=== PATIENT | female | born 1970 | race Caucasian/White ===

== ENCOUNTER 2017-11-18 10:51 | Emergency (ER) | payer OTHER ==
[~2017-11-18] VITALS: Ht 170.2 cm; Wt 95.2 kg
[~2017-11-18 10:51] MED LIST: IBUP800 PO; Monodox100 MG PO; PENVK500 PO; Prednisone20 MG PO; Ventolin Soln3 ML INH
[2017-11-18] MEDS ORDERED: CLIN300 PO (11:17)
[2017-11-18] MEDS ORDERED: HYDHCL25 PO (11:17)
[2017-11-18] MEDS ORDERED: HYDROCORTISONE1.5 GM TP (11:18)
== END 2017-11-18 11:19 | disposition home or self-care (01) ==
LOC: ER 10:51
DX: L23.7 Allergic contact dermatitis due to plants, except food (principal); Z79.2 Long term (current) use of antibiotics; Z79.899 Other long term (current) drug therapy; Z79.52 Long term (current) use of systemic steroids; F17.200 Nicotine dependence, unspecified, uncomplicated
CPT/HCPCS: 99282